=== PATIENT | male | born 1960 | race Caucasian/White ===

== ENCOUNTER 2024-04-19 19:27 | Inpatient (IN) | payer BC, MEDICARE, SELFPAY ==
[2024-04-19] VITALS (15 sets, daily range): BP systolic 76–137; BP diastolic 47–70; BMI 28.3; BMI 28.1
[2024-04-19 14:58] LABS: Glucose - Point of Care 121 mg/dl (70-99)
[2024-04-19 15:12] LABS: % Basophils 0.3 % (0-2); % Eosinophils 1.4 % (0-6); % Immature Granulocytes 0.2 % (0-0.5); % Lymphocytes 29.8 % (20.5-51.1); % Neutrophils 55.3 % (42.2-75.2); Absolute Eosinophils 0.1 10^3/uL (0-0.7); Absolute Lymphocytes 2.6 10^3/uL (1.2-3.4); Absolute Monocytes 1.1 10^3/uL (0.1-0.6); Absolute Neutrophils 4.8 10^3/uL (1.4-6.5); Hematocrit 34.6 % (39.0-52.0); Hemoglobin 12.1 g/dL (13.0-18.0); Mean Corpuscular Hgb 30.3 pg (27.0-31.0); Mean Corpuscular Volume 86.5 fL (80.0-94.0); Mean Platelet Volume 9.9 fL (7.4-10.4); Nucleated Red Blood Cells % 0 % (-); Platelet Count 220 10^3/uL (130-400); Red Cell Dist. Width 13.9 % (11.5-14.5); White Blood Cell Count 8.7 10^3/uL (4.8-10.8)
[2024-04-19 15:32] LABS: ALT (SGPT) 24 U/L (0-50); AST (SGOT) 23 U/L (17-59); Albumin 4.2 g/dl (3.5-5.0); Alkaline Phosphatase 48 U/L (38-126); Blood Urea Nitrogen 35 mg/dl (9-20); Calcium 9.2 mg/dl (8.4-10.2); Carbon Dioxide 23 mmol/L (22-30); Chloride 103 mmol/L (98-107); Estimated Creatinine Clearance 49 ml/min; Glucose 111 mg/dl (70-99); Potassium 3.7 mmol/L (3.5-5.1); Sodium 140 mmol/L (135-145); Total Bilirubin 0.5 mg/dl (0.2-1.3); Total Protein 6.7 g/dl (6.3-8.2); eGFR 36.36
--- NOTE | 2024-04-19 15:33 | ED.GENMED ---
History of Present Illness
General
Chief Complaint: Fainting/Passed Out
Time Seen by Provider: 04/19/24 15:04
History of Present Illness
History of Present Illness:
Patient presents to the emergency department with syncopal episodes. Notes that over the past few days he has had poor p.o. intake. Notes some watery diarrhea as well. Today while outside at a winery he endorses feeling lightheaded and general
malaise. While in the car ride home he felt headed and had 2 syncopal episodes. Patient is now awake denies pain anywhere. Endorses general malaise. Denies shortness of breath.
Past History
Past History
ED Past Medical History: None
ED Past Surgical History: None
Social History
Tobacco: Non-smoker
Alcohol: None
Drug: None
Personal:
Living: with family
Phy Exam
Physical Exam
Physical Exam:
GENERAL APPEARANCE: NAD, well developed/ well nourished
EYES lids/conjunctiva normal
EARS/NOSE/THROAT Mucous membranes moist, uvula midline without oral pharyngeal erythema, exudate or swelling
HEAD/NECK normocephalic atraumatic, neck is supple.
RESPIRATORY respiratory effort normal, speaks in full sentences, no accessory muscle use. Lungs clear to auscultation without rhonchi, wheezes, rales
CARDIAC Regular rate and rhythm, no edema.
ABDOMINAL Soft, ND/NT. No pulsatile masses on exam, rebound tenderness, Perez sign or pain over Mcburney's point.
MUSCLES/EXTREMITIES No abnormal range of motion, no swelling.
SKIN Warm, pink and dry. No rashes
NEUROLOGICAL Speech is clear and appropriate. Normal level of consciousness. 5/5 strength in all extremities.
PSYCH Normal mood and affect. Judgement/competence is appropriate
Course
Orders/Labs/Results
Orders:
Orders
04/19/24 14:56
ECG [Electrocardiogram (*1)] Urgent
Reason for Study: Syncope
EKG- Treatment ONCE
04/19/24 Dinner
Low Residue
At Your Request: Full Participation
04/19/24 15:01
Complete Blood Count/With Diff Urgent
Comprehensive Metabolic Panel Urgent
Troponin I Urgent
04/19/24 15:52
CT HEAD STROKE ALERT W/o Cont Urgent
Comment:
Reason For Exam: expressive aphsia
04/19/24 15:59
0.9% Sodium Chloride 1000 ml [Nss] 1,000 ml IV BOLUS
04/19/24 16:07
Aspirin 325 mg PO NOW STA
04/19/24 17:23
0.9% Sodium Chloride 1000 ml [Nss] 1,000 ml IV BOLUS
04/19/24 17:42
Urinalysis Urgent
Date Specimen was Collected: 04/19/24
Time Specimen was Collected: 15:46
04/19/24 18:03
Admit/Transfer Patient As Directed
Co-Sign Provider:
Level of Care: Inpatient admission
Assign to:: Telemetry
Physician / Group: Marcial
Diagnosis: Syncope with hypotension and JEANETH
Reason for Telemetry: Syncope
Date to Stop Telemetry: 04/21/24
Time to Stop Telemetry: 11:00
Reason for Hospitalization: see progress note
Expected length of stay greater than two midnights?: Yes
ELOS- Estimated Length of Stay in days: 3
I certify the patient meets the requirements for IP care: Yes
PRN Pain Medication Management As Directed
May give lesser potent ordered pain med per pt: Yes
preference::
Protocol:: Medication orders for pain may be administered in a
manner that supports deferring to patient preference
when the pt is:
- Requesting an ordered lesser potent pain medication.
Least to most potent pain medications are defined
as: acetaminophen < NSAID < tramadol < opioids
(morphine, oxycodone, hydromorphone).
- Requesting a lesser dose of the same medication IF
ORDERED.
- Requesting a less intrusive route of administration
if both routes are prescribed by the provider (PO <
IV).
04/19/24 18:05
Code Status As Directed
Resuscitation Status: Full Code
04/19/24 20:13
0.9% Sodium Chloride 1000 ml [Nss] 1,000 ml IV 100 mls/hr
04/19/24 20:13
Add On- LAB Routine
Tests Added?: LACTIC ACID
Echo 2D MMode Color/Doppler Routine
Reason for Study: New systolic murmur and syncope
NEUROLOGY CONSULT Routine
Consulting Provider: Marco Antonio Keys
Was physician already notified: Yes
Reason for consult: Transient speech disturbance
Blood Culture Routine
PRANAY Source: Blood/Venous
Specimen Description:
STOOL [C difficile Antigen & Toxins] Routine
PRANAY Source: Feces/Stool
Specimen Description:
Date Specimen was Collected: 04/20/24
Time Specimen was Collected: 06:43
Stool Culture Routine
PRANAY Source: Feces/Stool
Specimen Description:
Date Specimen was Collected: 04/20/24
Time Specimen was Collected: 06:43
Stool For WBC Routine
PRANAY Source: Feces/Stool
Specimen Description:
Date Specimen was Collected: 04/20/24
Time Specimen was Collected: 06:43
Activity As Directed
Activity Level: As Tolerated
With Assistance
Bladder Scan As Directed
Follow Bladder Retention/Intermittent Cath Algorithm?: No
Frequency: Other
Comment: check once ; TT me if >350
I&O [Intake/ Output] As Directed
Frequency: q12h
Sequential Compression Device [Pneumatic Compression Sleeves] As Directed
Type: Knee high
Carotid US [US Cerebrovascular] Routine
Comment:
Reason For Exam: right carotid bruit , syncope
DX Deep Vein Thrombosis Video Routine
04/20/24 05:54
BMP [Basic Metabolic Panel] IN AM
Cortisol, Random IN AM
TSH IN AM
04/20/24 08:00
dasatinib [Sprycel] See Dose Instructions PO DAILY
04/21/24 11:00
DC Protocol for Telemetry ONCE
Abnormal Lab Results
04/19/24 04/19/24
14:57 15:01
RBC 4.00 L 10^6/uL
(4.70-6.10)
Hgb 12.1 L g/dL
(13.0-18.0)
Hct 34.6 L %
(39.0-52.0)
Absolute Monos (auto) 1.1 H 10^3/uL
(0.1-0.6)
Monocytes % 13.0 H %
(1.7-9.3)
BUN 35 H mg/dl
(9-20)
Creatinine 2.0 H mg/dL
(0.7-1.3)
Glucose 111 H mg/dl
(70-99)
POC Glucose 121 H mg/dl
(70-99)
04/19/24 15:01
04/19/24 15:01
Vital Signs
Initial and Last Documented VS:
Initial Vital Signs
Pulse Resp BP Pulse Ox
68 17 99/48 98
04/19/24 14:58 04/19/24 14:58 04/19/24 14:58 04/19/24 14:58
Last Documented Vital Signs
Temp Pulse Resp BP Pulse Ox
97.9 F 64 18 141/70 100
04/20/24 19:31 04/20/24 19:31 04/20/24 19:31 04/20/24 19:31 04/20/24 19:31
*Critical Care Note
Total Time (30-74mins, 75-104mins- exclusive of procedures): Not Applicable
Update Note
Update Note:
Patient with acute onset expressive aphasia noted around 3:45 PM. I assessed the patient he was having notable word finding difficulties and difficulty completing sentences. NIH stroke scale is 1 for aphasia. Stroke alert called. Unable to get
CT angio secondary to JEANETH, though with low NIH doubt large vessel occlusion.
ED Attending Note
ED Attending Note
ED Attending Note:
patient p/w poor PO intake over past few days, also with some diarrhea
had a syncopal episode today after being outside at a winery
was initially hypotensive, responded well to fluids
he also had a short period of expressive aphasia while here -- responded as his BP improved -- suspect this was a watershed phenomenon
stroke alert was called at that time and CT head was negative. He got [address] Keys recommends MRI brain w/o
labs are showing JEANETH with Cr 2 from 1 two weeks ago
Giving IVF
patient with significant improving symptoms, feeling better
will admit to hospitalist
-
Portions of this chart may have been created with voice recognition software.� Occasional wrong word or��sound alike� substitutions may have occurred due to the inherent limitations of voice recognition software.
Discharge Plan
Departure
Patient Disposition: Admit
Date of Disposition: 04/19/24
Time of Disposition: 17:21
Presentation/result/management discussed w/ accepting MD/DO: Hospitalist
Discharge Problem:
JEANETH (acute kidney injury), Acute dehydration, Brain TIA
Interventions
Interventions:
*Risk Screen - Suicide Last Done: 04/19/24 20:49
*General Assessment Last Done: 04/19/24 14:56
*Neglect/Abuse Screening Last Done: 04/19/24 14:56
ED- Fall Risk Assessment Last Done: 04/19/24 14:56
*ED COVID-19 Vaccine History Last Done: 04/19/24 20:49
*Nursing Disposition Last Done: 04/19/24 20:17
ED- Cardiac Assessment Last Done: 04/19/24 14:56
ED- Neurological Assessment Last Done: 04/19/24 16:30
Discharge Date and Time
Discharge Date/Time: 04/19/24 20:18
[2024-04-19 15:37] LABS: Troponin I < 0.012 ng/ml
[2024-04-19] MEDS: NSS 1000 IV ×3 (16:10→22:01)
[2024-04-19] MEDS: ASPIRIN 325 MG PO (16:18)
[2024-04-19 18:00] LABS: Urine Albumin Trace (Neg - Trace); Urine Bilirubin Negative (Negative); Urine Character Clear (Clear); Urine Color Yellow; Urine Glucose Negative (Negative); Urine Ketone Negative (Negative); Urine Leukocyte Negative (Negative); Urine Nitrite Negative (Negative); Urine Occult Blood Negative (Negative); Urine Specific Gravity 1.015 (<1.030); Urine Urobilinogen Negative (Neg - 1+)
--- NOTE | 2024-04-19 18:12 | HPS.HSE ---
Family Physician
-
Family Physician: Maria Eugenia Carreno
Chief Complaint
-
syncope
History of Present Illness
Patient with acute onset of GI illness with poor oral intake and diarrhea was not feeling great today and presents to the hospital.
While he was in triads he passed out twice and he was noted to have a systolic blood pressure of 76/51. With IV fluids he responded well and is feeling better.
For the last 5 days he was not feeling better with regards to GI tract. No abdominal pain but he was queasy. A lot of rumbling. He had loose stools. He had like 2-3 bowel movements. Is more urgency than frequency with his stools. He took 1
Imodium 3 days ago with his diarrhea. Ever since not much frequency but again a feel of urgency. Today he had 2 small stools. No vomiting.
Today he did not have anything to eat other than a banana toast. He was out here in a winery where there was a book event of his friend. He did not feel well so he left early. On the way he was feeling that he was very sensitive to white cars and
he was feeling kind of woozy in his head. He had a dash of wine may be and nothing more
No chronic or acute GI issues. He had his routine colonoscopy. 2 months ago he had doxycycline and another antibiotics for 2 weeks for bacteremic episode. No history of C. difficile. He is on CML treatments with Sprycel .
while he was in the ED he also had a brief episode of not able to find her words and confabulating speech for 1 to 2 minutes. But all resolved quickly. No prior history of strokes. Currently without any neurological symptoms of headache, limb
weakness or sensory symptoms in the limbs.
He is known to have hypertension and is on ARB and hydrochlorothiazide. 1 month ago he came off amlodipine and was put on hydrochlorothiazide. He says normally his blood pressure runs on the higher side and he has more trouble in controlling it
than low blood pressure. He never had low blood pressure issues.
A month ago when he had left leg what looks like may be cellulitis and fluid, he came off not only of amlodipine, his dose of Sprycel was decreased from 100 mg to 80 mg.
Denies any cardiac dz.
Medical History
Past Medical History
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
Past Surgical History: Reports None
Social History
Tobacco: Non-smoker
Alcohol: Occasional
Drug: None
Personal:
Living: With Family
Employment: Employed ([employer])
Family History
Family History: Not pertinent
Allergies / Home Medications
Allergies reflects when Allergies were last updated in [employer].
Home Medications with original date entered in [employer]
Allergy/Medication List:
Allergies
Allergy/AdvReac Type Severity Reaction Status Date / Time
No Known Allergies Allergy Unverified 07/21/12 22:09
Home Medications
atorvastatin 40 mg tablet 60 mg PO DAILY 04/19/24
dasatinib 80 mg tablet (Sprycel) 80 mg PO DAILY 04/19/24
hydrochlorothiazide 25 mg tablet 25 mg PO DAILY 04/19/24
olmesartan 40 mg tablet 40 mg PO DAILY 04/19/24
sildenafil 100 mg tablet 100 mg PO DAILYPRN PRN ed 04/19/24
therapeutic multivitamin 1 tab PO DAILY 04/19/24
Review of Systems
-
A 12 point ROS was completed and negative except as noted: Yes
Physical Exam
Vital Signs
Vital Signs
Pulse Resp BP Pulse Ox
71 16 122/58 100
04/19/24 16:15 04/19/24 16:15 04/19/24 16:15 04/19/24 16:08
Physical Exam
General: No Apparent Distress and Other (looks ill)
HEENT: Moist mucous membranes
Respiratory: Non Labored Respirations; No Wheezes, Crackles or Accessory Resp Muscle Use
Cardiac: S1/S2, Regular Rhythm, Murmur and Carotid Pulses ( he has bruit BL possibly from his cardiac murmur but more prominently heard in right carotid)
GI: Soft, Non Tender, Non Distended and Normal Bowel Sounds
Musculoskeletal: Edema, Left Lower Extremity (chronic per pt ; no signs of active cellulitis; chronic discoloration noted)
Neuro: AO x 3 and No Motor Deficits; No Slurred Speech, Facial Droop or Tremors
Psych: Calm; No Confused or Agitated
Laboratory Results
-
04/19/24 15:
04/19/24 15:
Laboratory Results
Total Bilirubin 0.5 mg/dl (0.2-1.3) 04/19/24 15:
AST 23 U/L (17-59) 04/19/24 15:
ALT 24 U/L (0-50) 04/19/24 15:
Alkaline Phosphatase 48 U/L (38-126) 04/19/24 15:
Troponin I < 0.012 ng/ml 04/19/24 15:
Data Reviewed
-
Lab Data: Labs Reviewed by me
Impression/Plan
-
Syncope in the setting of severe hypotension.Suspect syncope secondary to volume deficit than primary cardiac issue. With IV fluids. Follow on telemetry. EKG with RBBB ,SR, and trops neg. Murmur and rt carotid bruit heard - check ECHO and
Carotids.
Severe hypotension-suspect secondary to volume deficit from poor oral intake and use of diuretics/HCTZ. Improved quickly with IV fluids in the ER. Doubt cardiac or sepsis at this point. CW IV fluids and follow BP. Check cortisol.
GI illness - with diarrhea and poor intake - Abdomen benign. Patient at the antibiotics 2 months ago-rule out C. difficile. Check stools for C. difficile, WBC and culture. Check blood cultures.
Transient speech disturbances-quickly resolved suspect secondary hypertension. CT of the head is negative. Nonfocal neurologically. MRI of the brain per cardiology.
JEANETH-suspect prerenal/dehydration along with medication. Hold losartan and hydrochlorothiazide. Support with IV fluids and follow creatinine closely.
Hypertension- hold medication
CML-on Sprycel which I would continue
Full code
--- NOTE | 2024-04-19 22:00 | TRANSFER ---
Pt admitted from ED to room 419-2. Pt walked from stretcher to bed with no assistance. AAOx3. VSS. Pt oriented to room and call jj placed within reach.
[2024-04-20 03:00] VITALS: BP 101/51
[2024-04-20 06:27] LABS: Lactic Acid 0.6 mmol/L (0.7-2.0)
[2024-04-20 06:58] LABS: Blood Urea Nitrogen 29 mg/dl (9-20); Calcium 8.2 mg/dl (8.4-10.2); Carbon Dioxide 22 mmol/L (22-30); Chloride 108 mmol/L (98-107); Estimated Creatinine Clearance 81 ml/min; Glucose 115 mg/dl (70-99); Potassium 4.2 mmol/L (3.5-5.1); Sodium 140 mmol/L (135-145); eGFR > 60.00
[2024-04-20 07:24] LABS: TSH 3.88 uIU/ml (0.47-4.68)
[2024-04-20] MEDS: NON-FORMULARY ITEM 80 MG PO (08:00)
[2024-04-20 08:08] VITALS: BP 145/67
[2024-04-20] MEDS: NSS 1000 IV ×2 (08:25→20:09)
--- NOTE | 2024-04-20 10:35 | W.PN.HOSP.TC ---
Today's Communication/Plan
-
IV fluids after the current bag.
Follow stool studies.
Follow MRI of the brain.
He would benefit echocardiogram and carotid ultrasound-if no evidence of stroke could possibly do as outpatient.
Assessment / Plan
Assessment / Plan
Syncope in the setting of severe hypotension.Suspect syncope secondary to volume deficit than primary cardiac issue. EKG with RBBB ,SR, and trops neg. Murmur and rt carotid bruit heard - check ECHO and Carotids. No further episodes with resolved
hypertension and JEANETH.
Severe hypotension-suspect secondary to volume deficit from poor oral intake and use of diuretics/HCTZ. Improved quickly with IV fluids in the ER. Doubt cardiac or sepsis at this point. Random cortisol is okay. Blood pressure remains improved as
well as improved symptoms.
GI illness - with diarrhea and poor intake - Abdomen benign. Patient at the antibiotics 2 months ago-rule out C. difficile. Check stools for C. difficile, WBC and culture. Check blood cultures. Patient today without GI symptoms in fact good
appetite and had a full breakfast.
Transient speech disturbances-quickly resolved suspect secondary hypertension. CT of the head is negative. Nonfocal neurologically. MRI of the brain per neurology.
JEANETH-suspect prerenal/dehydration along with medication. Resolved. Restart losartan if needed but would hold hydrochlorothiazide and review as outpatient. Will IV fluids after current bag.
Hypertension- hold medication
CML-on Sprycel which I would continue
Full code
Anticipated Discharge: Within 24 hours
Subjective/Interval History
-
Date of Service: April 20, 2024
Feeling much improved today.
No further passing out spells or feeling dizzy. Blood pressure has improved.
His GI track is much quite today. Tolerated full breakfast. No diarrhea. Denies any abdominal pain. Had a loose stool which is sent for evaluation.
No fever or chills.
No further speech impairment. Denies headache, visual disturbances, limb weakness or sensory disturbances in the extremities.
Objective Data
-
Labs:
Laboratory Results
04/20/24 04/20/24
05:54 07:50
WBC Cancelled
Hgb Cancelled
Hct Cancelled
Plt Count Cancelled
Sodium 140 Cancelled
Potassium 4.2 Cancelled
Chloride 108 H Cancelled
Carbon Dioxide 22 Cancelled
BUN 29 H Cancelled
Creatinine 1.2 Cancelled
Glucose 115 H Cancelled
Calcium 8.2 L Cancelled
Vital Signs:
Vital Signs
Temp Pulse Resp BP Pulse Ox
98.2 F 65 17 145/67 100
04/20/24 08:08 04/20/24 08:08 04/20/24 08:08 04/20/24 08:08 04/20/24 08:08
I&O
04/19/24 04/20/24 04/21/24
06:59 06:59 06:59
Intake Total 240 / 240
Balance 240 / 240
Review of Systems
-
Constitutional: Denies Fever
EENT: Denies Sore Throat
Respiratory: Denies Trouble Breathing
Cardiac: Denies Chest Pain
Genitourinary: Denies Dysuria or Frequency
Physical Exam
-
General: No Apparent Distress
HEENT: Moist Mucous Membranes
Respiratory: Non Labored Respirations; Negative Accessory Resp Muscle Use
Cardiac: Regular Rhythm and S1/S2; Negative Tachycardic (No arrhythmias on the monitor)
GI: Soft and Nontender
Neuro: AO x 3 and No Motor Deficits
Psych: Calm; Negative Confused or Agitated
Data Reviewed
-
Labs: Labs Reviewed by me
[2024-04-20 11:28] VITALS: BP 158/73
[2024-04-20] MEDS: BENICAR 40 MG PO (15:49)
[2024-04-20 16:00] VITALS: BP 178/69
[2024-04-20 19:31] VITALS: BP 141/70
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
[2024-04-20 23:47] VITALS: BP 122/59
[2024-04-21 03:23] VITALS: BP 124/59
[2024-04-21 04:50] LABS: Hepatitis C Antibody Negative (Negative)
--- NOTE | 2024-04-21 07:31 | W.PN.NEURO.1 ---
Today's Communication / Plan
-
Orthostatic blood pressures with goal of normotension
Continue current medications
Neuro Assessment/Plan
Assessment
Impression:
MARIO CARDONA is a 63 year old M who has presented to the hospital with syncope and AMS secondary to hypotension
Plan
Recommendations:
Orthostatic blood pressures with goal of normotension
Continue current medications
Will follow as needed. No clear need for outpatient follow-up
Subjective/Objective
Subjective Data
Date of Service: April 21, 2024
Objective Data
Vital Signs
Temp Pulse Resp BP Pulse Ox
36.6 C 57 18 124/59 98
04/21/24 03:23 04/21/24 03:23 04/21/24 03:23 04/21/24 03:23 04/21/24 03:23
Sodium Cancelled 04/20/24 07:50
Potassium Cancelled 04/20/24 07:50
BUN Cancelled 04/20/24 07:50
Glucose Cancelled 04/20/24 07:50
Calcium Cancelled 04/20/24 07:50
Patient Allergies
No Known Allergies Allergy (Unverified 07/21/12 22:09)
Data Reviewed
-
MRI Head: Report Reviewed
Labs: Report Reviewed
Reviewed with: Physician
Old Records: Summarized
Past History
Past History
ED Past Medical History: Cancer and HTN
ED Past Surgical History: None
Social History
Tobacco: Non-smoker
Alcohol: None
Drug: None
Personal:
Living: with family
Family History
Family History: Other (reviewed and non-contributory)
Medications
-
Medications:
Generic Name Dose Route Start Last Admin
Trade Name Freq PRN Reason Stop Dose Admin
Dasatinib [Sprycel] 0 mg 04/20/24 08:00 04/20/24 08:00
80mg Tablet: One PO 05/18/24 07:59 80 mg
Tablet Po Daily DAILY SHONDA Administration
Olmesartan 40 mg 04/20/24 15:00 04/20/24 15:49
Olmesartan 20 Mg Tablet PO 05/18/24 14:59 40 mg
DAILY SHONDA Administration
[2024-04-21 07:34] LABS: Hematocrit 31.9 % (39.0-52.0); Hemoglobin 10.5 g/dL (13.0-18.0); Mean Corp Hgb Conc. 32.9 g/dL (33.0-37.0); Mean Corpuscular Hgb 30.3 pg (27.0-31.0); Mean Corpuscular Volume 92.2 fL (80.0-94.0); Mean Platelet Volume 10.5 fL (7.4-10.4); Platelet Count 175 10^3/uL (130-400); Red Blood Cell Count 3.46 10^6/uL (4.70-6.10); Red Cell Dist. Width 14.1 % (11.5-14.5); White Blood Cell Count 4.8 10^3/uL (4.8-10.8)
[2024-04-21 07:44] VITALS: BP 137/69
[2024-04-21 07:48] LABS: Blood Urea Nitrogen 24 mg/dl (9-20); Calcium 8.5 mg/dl (8.4-10.2); Carbon Dioxide 24 mmol/L (22-30); Chloride 108 mmol/L (98-107); Estimated Creatinine Clearance 98 ml/min; Glucose 106 mg/dl (70-99); Potassium 4.4 mmol/L (3.5-5.1); Sodium 143 mmol/L (135-145); eGFR > 60.00
[2024-04-21] MEDS: BENICAR 40 MG PO (08:00)
[2024-04-21] MEDS: NON-FORMULARY ITEM 80 MG PO (08:00)
[2024-04-21] MEDS: NSS IV (08:10)
--- NOTE | 2024-04-21 09:20 | W.PN.HOSP.TC ---
Today's Communication/Plan
-
Discharge planning today
Assessment / Plan
Assessment / Plan
Physical exam:
General: Well Developed, Well Nourished and No Apparent Distress
HEENT: Normocephalic, Atraumatic and Moist Mucous Membranes
Respiratory: Clear to Auscultation; Negative Wheezes, Rales or Rhonchi
Cardiac: Regular Rhythm and S1/S2
GI: Soft, Nontender and Nondistended
Musculoskeletal: No Clubbing, No Cyanosis and No Edema
Neuro: Awake, Alert and Oriented
Psych: Calm
A/P:
Syncope in the setting of severe hypotension.Suspect syncope secondary to volume deficit than primary cardiac issue. EKG with RBBB ,SR, and trops neg. Murmur and rt carotid bruit heard - checked ECHO and Carotids. No further episodes with resolved
hypotension and JEANETH. Hold HCTZ and discussed with PCP as outpatient. Echo came back with right ventricular dysfunction so CTA of the chest stat and came back no PE. Carotid ultrasound with some stenosis but less than 70%. Recommended lifestyle
changes and aspirin, antihypertensives, and statins.
Severe hypotension-suspect secondary to volume deficit from poor oral intake and use of diuretics/HCTZ. Improved quickly with IV fluids in the ER. Doubt cardiac or sepsis at this point. Random cortisol is okay. Blood pressure remains improved as
well as improved symptoms.
GI illness - with diarrhea and poor intake - Abdomen benign. Patient at the antibiotics 2 months ago-rule out C. difficile. Check stools for C. difficile, WBC and culture. Check blood cultures. Patient today without GI symptoms in fact good
appetite and had a full breakfast.
Transient speech disturbances-quickly resolved suspect secondary hypertension. CT of the head is negative. Nonfocal neurologically. MRI of the brain per neurology and no acute abnormality.
JEANETH-suspect prerenal/dehydration along with medication. Resolved. Restart losartan if needed but would hold hydrochlorothiazide and review as outpatient. Will IV fluids after current bag.
Hypertension- hold medication
CML-on Sprycel which I would continue
Full code
Anticipated Discharge: Today
Subjective/Interval History
-
Date of Service: April 21, 2024
Patient doing well. No chest pain or shortness of breath. Blood pressure in the normal side although went up with stress and it came down.
Objective Data
-
Labs:
Laboratory Results
04/21/24
06:56
WBC 4.8
Hgb 10.5 L
Hct 31.9 L
Plt Count 175 D
Sodium 143
Potassium 4.4
Chloride 108 H
Carbon Dioxide 24
BUN 24 H
Creatinine 1.0
Glucose 106 H
Calcium 8.5
Vital Signs:
Vital Signs
Temp Pulse Resp BP Pulse Ox
98.0 F 58 20 137/69 99
04/21/24 07:44 04/21/24 07:44 04/21/24 07:44 04/21/24 07:44 04/21/24 08:05
I&O
04/20/24 04/21/24 04/22/24
06:59 06:59 06:59
Intake Total 240 / 240 1440 / 1440
Balance 240 / 240 1440 / 1440
[2024-04-21 11:14] VITALS: BP 152/65; BP 156/70; BP 168/71; PULSE 60; PULSE 61; PULSE 62
[2024-04-21 15:13] VITALS: BP 175/81
--- NOTE | 2024-04-21 16:12 | W.DCSUMMARY ---
Discharge Summary
Discharge Data
Date of Admission: 04/19/24
Date of Discharge: 04/21/24
-
Pending Results: No
Hospital Course
Patient is 63 years old male history of hypertension, CML, came into the hospital after a syncopal event. He had some GI transient symptoms and also hypotension as well as some speech transient abnormalities. Patient was admitted to the hospital
and given IV fluids and some of the antihypertensive medications were held. Stool studies including C. difficile were negative. Blood culture no growth. Neurology consulted. He had an MRI of the brain unremarkable. Neurology cleared him for
discharge. He also had an echocardiogram that was relatively unremarkable but he had some right ventricular dysfunction that prompted a CT of the chest and it was negative for PE. He also had carotid ultrasound that shows less than 50% stenosis on
the right and 50 to 69% stenosis on the left. No indication for surgical revascularization but definitely indication for aggressive cardiac risk prevention and recommended aspirin statins and continue blood pressure control. He would like to hold
off on the HCTZ until discussion with primary care physician. He also would like to hold off on aspirin and statins after discussions with his state's attorney but strongly recommended and prescribed upon discharge. Otherwise, patient is
hemodynamically stable. He is not orthostatic completely of discharge. He has been ambulating on the hallway without any difficulties. He will be discharged in stable condition today.
Discharge duration: 33 minutes
Discharge Plan
-
Patient Disposition: Home (Routine Discharge)
Discharge Diagnosis/Procedures: Syncope. Hypotension. Hypertension.
Diet: Low Cholesterol
Activity: As tolerated
Blood Work: Please PCP to check CBC and BMP within 1 week. Would recommend to check fasting lipids as well.
Referrals:
Maria Eugenia Carreno MD [Family Provider] - in less than 1 week
Prescriptions:
New
aspirin 81 mg capsule
81 mg PO DAILY Qty: 30 0RF
Continued
atorvastatin 40 mg tablet
60 mg PO DAILY
sildenafil 100 mg tablet
100 mg PO DAILYPRN PRN (Reason: ed)
olmesartan 40 mg tablet
40 mg PO DAILY
dasatinib [Sprycel] 80 mg tablet
80 mg PO DAILY
therapeutic multivitamin Tablet
1 tab PO DAILY
Held
hydrochlorothiazide 25 mg tablet
25 mg PO DAILY
Hold Instructions: Resume on 04/28/24.
Discharge Orders:
Discharge Patient (As Directed); Ordered 04/21/24
Ordered By: Oren Myles
Discharge Date and Time
Discharge Date/Time: 04/21/24 18:47
Print Language: FRISIAN
[2024-04-21 16:22] VITALS: BP 167/75
[2024-04-21] MEDS: FLUAD (65 yr+) 2024-2025 FORMULA 0.5 ML IM (16:29)
--- NOTE | 2024-04-21 17:16 | CM ---
Patient resides with his spouse in a multilevel home, patient is independent with adl's and ambulation, no dme, cate drives, home today no needs.
Plan; Home no needs.
[2024-04-21 17:23] VITALS: BP 154/70
== END 2024-04-21 18:47 | disposition home or self-care (01) | DRG 683 ==
LOC: 4 WEST ACU 19:27
PROVIDERS: ADMITTING PHYSICIAN Internal Medicine; ATTENDING PHYSICIAN Hospitalist; CONSULT PHYSICIAN Psychiatry & Neurology Neurology; EMERGENCY PHYSICIAN Emergency Medicine; FAMILY PHYSICIAN Internal Medicine
DX: N17.9 Acute kidney failure, unspecified (principal); C92.10 Chronic myeloid leukemia, BCR/ABL-positive, not having achieved remission; R47.01 Aphasia; I11.9 Hypertensive heart disease without heart failure; I95.9 Hypotension, unspecified; R55 Syncope and collapse
CPT/HCPCS: 70450; 70551; 71275; 80048; 80053; 81003; 82533; 82962; 83605; 84443; 84484; 85025; 85027; 86803; 87040; 87045; 87046; 87077; 87324; 87427; 87449; 89055; 90662; 93005; 93306; 93880; 96360; 96361; 99285; G0008; Q9967